=== PATIENT | male | born 1970 | race Caucasian/White ===

== ENCOUNTER 2021-11-01 17:02 | Emergency (ER) | payer OTHER ==
[~2021-11-01] VITALS: Ht 190.5 cm; Wt 91.6 kg
== END 2021-11-01 18:36 | disposition home or self-care (01) ==
LOC: ED 17:02
DX: S09.90XA Unspecified injury of head, initial encounter (principal); F10.129 Alcohol abuse with intoxication, unspecified; Y90.7 Blood alcohol level of 200-239 mg/100 ml; I10 Essential (primary) hypertension; W01.198A Fall on same level from slipping, tripping and stumbling with subsequent striking against other object, initial encounter
CPT/HCPCS: 36415; 70450; 72125; 80048; 85025; 99284-25; G0480; J7030

== ENCOUNTER 2021-12-05 06:27 | Emergency (ER) | payer OTHER ==
[~2021-12-05] VITALS: Ht 188 cm; Wt 99.8 kg
[~2021-12-05 06:27] MED LIST: ZESTRIL40 MG PO
--- OUTSIDE RECORDS SUMMARY | 2021-12-05 06:34 | XMS ---
PreManage Notification: PERLITA RADER [employer] [place] [employer] Events No recent Security Events currently on file CRITERIA MET - [facility] - 3 Facilities in 90 Days - [facility] - 2 Visits in 30 Days - 6 ED Visits in 6 Months CARE PROVIDERS There are no care providers on record at this time. Nikita has no Care Guidelines for this patient. E.DMerlin VISIT COUNT (12 MO.) 26 [facility] 2 [facility] 1 [facility] 1 [facility] 13 [facility] [address] [facility] [address] [facility] TOTAL 53 NOTE: Visits indicate total known visits. ED/UCC VISIT TRACKING (12 MO.) 12/05/2021 06:27 RONALD Escamilla TYPE: Emergency COMPLAINT: - VOMITING 11/24/2021 07[facility] DIAGNOSES: - Emesis - Diarrhea (Adult) - Nausea with vomiting, unspecified - Alcohol abuse, uncomplicated 11/23/2021 21:56 [facility] DIAGNOSES: - Alcohol use, unspecified with intoxication, unspecified - Alcohol Intoxication - Chest Pain - Gastritis, unspecified, without bleeding 11/19/2021 20:50 RONALD Escamilla TYPE: Emergency COMPLAINT: - CHEST PAIN DIAGNOSES: - Essential (primary) hypertension - Alcohol abuse, uncomplicated - Other chest pain - Allergy status to penicillin 11/18/2021 00:17 [facility] Anuel BRADY TYPE: Emergency DIAGNOSES: - Alcohol use, unspecified with intoxication, uncomplicated - Gastro-esophageal reflux disease without esophagitis - Chest pain, unspecified 11/08/2021 18:32 [facility] Anuel BRADY TYPE: Emergency DIAGNOSES: - Alcohol Intoxication - Alcohol abuse, uncomplicated 11/08/2021 10:11 [facility] Anuel BRADY TYPE: Emergency DIAGNOSES: - Elevated blood-pressure reading, without diagnosis of hypertension - Detox - Dehydration - Detox Evaluation - Alcohol abuse, uncomplicated 11/05/2021 10:51 [facility] Anuel BRADY TYPE: Emergency DIAGNOSES: - Alcohol dependence, uncomplicated - Alcohol Intoxication 11/04/2021 17:45 [facility] TYPE: Emergency COMPLAINT: - HIGH BLOOD PRESSURE 11/01/2021 17:03 [facility] [place] [facility] TYPE: Emergency COMPLAINT: - FALL/INTOXICATION DIAGNOSES: - Essential (primary) hypertension - Alcohol abuse with intoxication, unspecified - Unspecified injury of head, initial encounter - Blood alcohol level of 200-239 mg/100 ml - Fall on same level from slipping, tripping and stumbling with subsequent striking against other object, initial encounter 10/31/2021 12:35 [facility] [place] TYPE: Emergency DIAGNOSES: - Laceration without foreign body of left middle finger without damage to nail, initial encounter - leg injury - Suicidal Thoughts - Alcohol use, unspecified with intoxication, uncomplicated 10[facility] COMPLAINT: - Intoxication DIAGNOSES: - Alcohol use, unspecified with intoxication, uncomplicated - Alcohol Intoxication - Intoxication 10/29/2021 20:22 [facility] TYPE: Emergency COMPLAINT: - Dehydration DIAGNOSES: - Dehydration - Alcohol use, unspecified with intoxication, uncomplicated - Alcohol Intoxication 10/26/2021 17:15 [facility] TYPE: Emergency DIAGNOSES: - Alcohol use, unspecified with intoxication, uncomplicated - Problem related to unspecified psychosocial circumstances - Alcohol Intoxication - EMS JOSE L 09/25/2021 22:54 Elmo WEAVER [place] TYPE: Emergency COMPLAINT: - SIRS, TME, ETOH INTOX, CHEST PAIN, LACT ACID, TRANSAMINITIS DIAGNOSES: - SIRS, TME, ETOH INTOX, CHEST PAIN, LACT ACID, TRANSAMINITIS 09/25/2021 03:05 Elmo ADHIKARI TYPE: Emergency COMPLAINT: - HYPERTENSION DIAGNOSES: 1. Procedure and treatment not carried out due to patient leaving prior to being seen by health care provider 1. Procedure and treatment not carried out due to patient leaving prior to being seen by health care provider 09/19/2021 03:26 Savita ADHIKARI TYPE: Emergency DIAGNOSES: - Chest Pain - Hypertensive urgency - Chest pain, unspecified - Other stimulant abuse, uncomplicated - Headache, unspecified 09/14/2021 16:44 Savita ADHIKARI TYPE: Emergency DIAGNOSES: - Alcohol use, unspecified with intoxication, uncomplicated - Alcohol dependence, uncomplicated - Alcohol Intoxication 09/13/2021 12:41 Savita ADHIKARI TYPE: Emergency DIAGNOSES: - Alcohol dependence with withdrawal, uncomplicated - Unspecified injury of head, initial encounter - Alcohol use, unspecified with intoxication, uncomplicated - Abdominal Pain - Alcohol Intoxication 09/11/2021 01:19 Savita ADHIKARI TYPE: Emergency DIAGNOSES: - Alcohol Problem Plus 33 More Visits INPATIENT VISIT TRACKING (12 MO.) 09/25/2021 22:54 Elmo ADHIKARI TYPE: Medical Surgical COMPLAINT: - SIRS, TME, ETOH INTOX, CHEST PAIN, LACT ACID, TRANSAMINITIS DIAGNOSES: 1. Toxic effect of ethanol, accidental (unintentional), initial encounter 1. Unspecified abdominal pain 2. Other toxic encephalopathy 3. Systemic inflammatory response syndrome (SIRS) of non-infectious origin with acute organ dysfunction 4. Unspecified protein-calorie malnutrition 5. Hypo-osmolality and hyponatremia 6. Alcohol abuse with withdrawal, unspecified 7. Alcohol abuse with intoxication, unspecified 8. Schizophrenia, unspecified 9. Essential (primary) hypertension 10. Gastro-esophageal reflux disease without esophagitis 11. Nicotine dependence, cigarettes, uncomplicated 12. Cannabis use, unspecified, uncomplicated 13. Alcoholic hepatitis without ascites 14. Alcoholic liver disease, unspecified 15. Blood alcohol level of 240 mg/100 ml or more 16. Contact with and (suspected) exposure to COVID-19 17. Other specified places as the place of occurrence of the external cause 18. Body mass index [BMI] 26.0-26.9, adult 18. Body mass index [BMI] 26.0-26.9, adult 18. Body mass index [BMI] 26.0-26.9, adult 18. Body mass index [BMI] 26.0-26.9, adult 18. Body mass index [BMI] 26.0-26.9, adult 18. Body mass index [BMI] 26.0-26.9, adult 18. Body mass index [BMI] 26.0-26.9, adult 19. Patient's noncompliance with other medical treatment and regimen - SIRS, TME, ETOH INTOX, CHEST PAIN, LACT ACID, TRANSAMINITIS 07/28/2021 18:12 [facility] TYPE: Medical Surgical COMPLAINT: - IMMINENT DELERIUM TREMENS DIAGNOSES: 1. Alcohol dependence with withdrawal, unspecified 1. Alcohol dependence with withdrawal delirium 2. Unspecified protein-calorie malnutrition 3. Melena 4. Other stimulant abuse, uncomplicated 5. Alcoholic gastritis without bleeding 6. Blood alcohol level of 240 mg/100 ml or more 7. Esophagitis, unspecified without bleeding 8. Essential (primary) hypertension 9. Hyperlipidemia, unspecified 10. Patient's noncompliance with other medical treatment and regimen 11. Schizophrenia, unspecified 12. Gastro-esophageal reflux disease without esophagitis 13. SUSPECTED EXPOSURE TO COVID 19 - IMMINENT DELERIUM TREMENS 07/11/2021 19:53 [facility] TYPE: Medical Surgical COMPLAINT: - POSS SIRS, TME, POSS ETOH INTOX, IMPEND DTS DIAGNOSES: 1. Toxic effect of ethanol, accidental (unintentional), initial encounter 1. Toxic effect of ethanol, accidental (unintentional), initial encounter 2. Systemic inflammatory response syndrome (SIRS) of non-infectious origin with acute organ dysfunction 3. Alcoholic gastritis with bleeding 4. Acidosis 5. Other place in single-family (private) house as the place of occurrence of the external cause 6. SUSPECTED EXPOSURE TO COVID 19 7. Hypertensive urgency 8. Essential (primary) hypertension 9. Other stimulant abuse, uncomplicated 10. Schizophrenia, unspecified 11. Gastro-esophageal reflux disease without esophagitis 12. Patient's noncompliance with other medical treatment and regimen 13. Nicotine dependence, cigarettes, uncomplicated 14. Alcohol abuse with intoxication, unspecified 15. Blood alcohol level of 240 mg/100 ml or more - POSS SIRS, TME, POSS ETOH INTOX, IMPEND DTS 07/04/2021 03:37 [facility] TYPE: Medical Surgical COMPLAINT: - RECURRENT B LE CELLULITIS DIAGNOSES: 1. Pain in right leg 1. Sepsis, unspecified organism 2. Localized swelling, mass and lump, left lower limb 2. Cellulitis of right lower limb 3. Cellulitis of left lower limb 4. Alcohol abuse, uncomplicated 5. Schizophrenia, unspecified 6. Gastro-esophageal reflux disease without esophagitis 7. Essential (primary) hypertension 8. Other stimulant abuse, uncomplicated 9. Other disorders of electrolyte and fluid balance, not elsewhere classified 10. SUSPECTED EXPOSURE TO COVID 19 11. Nicotine dependence, cigarettes, uncomplicated 12. Cannabis use, unspecified, uncomplicated 13. Patient's noncompliance with other medical treatment and regimen - RECURRENT B LE CELLULITIS 06/20/2021 19:35 [facility] TYPE: Medical Surgical COMPLAINT: - ETOH W/D IMMINENT DT'S DIAGNOSES: 1. Alcohol abuse with withdrawal, unspecified 1. Alcohol abuse with withdrawal, unspecified 2. Systemic inflammatory response syndrome (SIRS) of non-infectious origin without acute organ dysfunction 3. Unspecified protein-calorie malnutrition 4. Nicotine dependence, cigarettes, uncomplicated 5. Essential (primary) hypertension 6. Other stimulant abuse, uncomplicated 7. Schizophrenia, unspecified 8. Alcohol abuse with withdrawal delirium 9. Alcoholic hepatitis without ascites 10. Liver disease, unspecified 11. Gastro-esophageal reflux disease without esophagitis 12. SUSPECTED EXPOSURE TO COVID 19 13. Body mass index [BMI] 36.0-36.9, adult 13. Body mass index [BMI] 36.0-36.9, adult 13. Body mass index [BMI] 36.0-36.9, adult 13. Body mass index [BMI] 36.0-36.9, adult 13. Body mass index [BMI] 36.0-36.9, adult 13. Body mass index [BMI] 36.0-36.9, adult 13. Body mass index [BMI] 36.0-36.9, adult 13. Body mass index [BMI] 36.0-36.9, adult 13. Body mass index [BMI] 36.0-36.9, adult 13. Body mass index [BMI] 36.0-36.9, adult 13. Body mass index [BMI] 36.0-36.9, adult 13. Body mass index [BMI] 36.0-36.9, adult 13. Body mass index [BMI] 36.0-36.9, adult 13. Body mass index [BMI] 36.0-36.9, adult 14. Patient's other noncompliance with medication regimen 15. Fall on same level, unspecified, initial encounter 16. Other specified places as the place of occurrence of the external cause - ETOH W/D IMMINENT DT'S 06/09/2021 13:28 [facility] TYPE: Medical Surgical COMPLAINT: - ETOH INTOXICATION, RIGHT HAND WRIST FRACTURE. HIGH RISK FOR WITHDRAWAL DIAGNOSES: 1. Toxic effect of ethanol, accidental (unintentional), initial encounter 1. OTHER TOXIC ENCEPHALOPATHY 2. OTHER TOXIC ENCEPHALOPATHY 3. Unspecified protein-calorie malnutrition 4. Unspecified place in unspecified non-institutional (private) residence as the place of occurrence of the external cause 5. Blood alcohol level of 240 mg/100 ml or more 6. SUSPECTED EXPOSURE TO COVID 19 7. Nicotine dependence, cigarettes, uncomplicated 8. Schizophrenia, unspecified 9. Essential (primary) hypertension 10. Gastro-esophageal reflux disease without esophagitis 11. Fracture of unspecified carpal bone, right wrist, initial encounter for closed fracture 12. Fall on same level from slipping, tripping and stumbling without subsequent striking against object, initial encounter 13. UNSHELTERED HOMELESSNESS - ETOH INTOXICATION, RIGHT HAND WRIST FRACTURE. HIGH RISK FOR WITHDRAWAL 06/05/2021 16:43 [facility] TYPE: Medical Surgical COMPLAINT: - SIRS, TME, ETOH INTOX, IMPENDING DTS DIAGNOSES: 1. Toxic effect of ethanol, accidental (unintentional), initial encounter 1. Toxic effect of ethanol, accidental (unintentional), initial encounter 2. Systemic inflammatory response syndrome (SIRS) of non-infectious origin with acute organ dysfunction 3. OTHER TOXIC ENCEPHALOPATHY 4. Acidosis 5. Unspecified protein-calorie malnutrition 6. Alcohol abuse with withdrawal, unspecified 7. Gastritis, unspecified, without bleeding 8. Gastro-esophageal reflux disease without esophagitis 9. Schizophrenia, unspecified 10. Essential (primary) hypertension 11. Cannabis use, unspecified, uncomplicated 12. Nicotine dependence, cigarettes, uncomplicated 13. Patient's noncompliance with other medical treatment and regimen 14. Blood alcohol level of 240 mg/100 ml or more 15. Hypokalemia 16. SUSPECTED EXPOSURE TO COVID 19 17. Displaced fracture of neck of fourth metacarpal bone, right hand, subsequent encounter for fracture with routine healing 18. Displaced fracture of neck of fifth metacarpal bone, right hand, subsequent encounter for fracture with routine healing 19. Other place in other non-institutional residence as the place of occurrence of the external cause - SIRS, TME, ETOH INTOX, IMPENDING DTS 03/30/2021 17:24 Savita ADHIKARI TYPE: Neurology COMPLAINT: - K85.20 DIAGNOSES: - Alcohol dependence, uncomplicated - Alcohol induced acute pancreatitis without necrosis or infection 12/15/2020 01:01 Elmo ADHIKARI TYPE: Medical Surgical COMPLAINT: - DELERIUM TREMENS DIAGNOSES: 1. Toxic effect of ethanol, accidental (unintentional), initial encounter 1. Toxic effect of ethanol, accidental (unintentional), initial encounter 2. Alcohol dependence with withdrawal delirium 3. Systemic inflammatory response syndrome (SIRS) of non-infectious origin without acute organ dysfunction 4. Unspecified protein-calorie malnutrition 5. Other place in single-family (private) house as the place of occurrence of the external cause 6. Alcoholic hepatitis without ascites 7. Schizophrenia, unspecified 8. Nicotine dependence, cigarettes, uncomplicated 9. Unspecified abdominal pain 10. Patient's noncompliance with other medical treatment and regimen 11. 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 Body mass index [BMI] 26.0-26.9, adult 13. Body mass index [BMI] 26.0-26.9, adult 13. Body mass index [BMI] 26.0-26.9, adult 13. Body mass index [BMI] 26.0-26.9, adult 13. Body mass index [BMI] 26.0-26.9, adult 13. Body mass index [BMI] 26.0-26.9, adult 13. Body mass index [BMI] 26.0-26.9, adult 13. Body mass index [BMI] 26.0-26.9, adult 14. SUSPECTED EXPOSURE TO COVID 19 - STANLEY SOW [email or web address]
[2021-12-05] MEDS ORDERED: ONDANSETRON ODT8 MG PO (07:15)
== END 2021-12-05 08:10 | disposition home or self-care (01) ==
LOC: ED 06:27
DX: R11.2 Nausea with vomiting, unspecified (principal); R04.0 Epistaxis; I10 Essential (primary) hypertension; Z88.0 Allergy status to penicillin
CPT/HCPCS: 99284; A9270

== ENCOUNTER 2022-04-07 14:55 | Emergency (ER) | payer OTHER ==
[~2022-04-07] VITALS: Ht 188 cm; Wt 99.8 kg
[~2022-04-07 14:55] MED LIST changes: +ONDANSETRON ODT8 MG PO
--- OUTSIDE RECORDS SUMMARY | 2022-04-07 15:02 | XMS ---
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 - Has Care Guidelines - [facility] - 2 Visits in 30 Days - 6 ED Visits in 6 Months - [facility] - 3 Facilities in 90 Days CARE PROVIDERS There are no care providers on record at this time. Guidelines Source: [facility] Guidelines Date: 02/19/2022 Care Recommendation: -Please assist patient to contact [facility] to change their address, as he has been in [place] and appears to be utilizing [place] Medicaid. - [email or web address] or call [phone] and report changes over the phone. E.D. VISIT COUNT (12 MO.) 2 [facility] 21 [facility] 2 [facility] 1 [facility] 1 [facility] [address] 5 [facility] TOTAL 56 NOTE: Visits indicate total known visits. ED/C VISIT TRACKING (12 MO.) 04/07/2022 14:56 [facility] TYPE: Emergency COMPLAINT: - HEADACHES 04/04/2022 21:33 [facility] TYPE: Emergency DIAGNOSES: - Anxiety disorder, unspecified - Medical Problem (Minor) - Delusional disorders - Mental Health Evaluation - personal "pourban are following me" 03/30/2022 13:04 [facility] TYPE: Emergency DIAGNOSES: - Withdrawal (Alcohol) - Alcoholic gastritis without bleeding - Alcohol dependence, uncomplicated - Vomiting (Severe) - nausia, V, withdrawl - Elevated white blood cell count, unspecified - Emesis 03/29/2022 13:44 [facility] [place] TYPE: Emergency DIAGNOSES: - Alcohol use, unspecified with intoxication, uncomplicated - Medical Clearance - Elevated white blood cell count, unspecified 03/26/2022 00:05 [facility] [place] TYPE: Emergency DIAGNOSES: - V/Alcohol withdrawal - Shaking - Alcohol dependence with intoxication, unspecified - Nausea with vomiting, unspecified 02/18/2022 08:46 Elmo ADHIKARI TYPE: Emergency COMPLAINT: - IMPENDING DTS /ETOH W/D DIAGNOSES: - IMPENDING DTS /ETOH W/D 01/28/2022 21:16 Savita ADHIKARI TYPE: Emergency DIAGNOSES: - Alcohol use, unspecified with intoxication, uncomplicated - Psychiatric Evaluation - Suicidal ideations 01/21/2022 14:57 Elmo ADHIKARI TYPE: Emergency COMPLAINT: - ETOH DIAGNOSES: 1. Procedure and treatment not carried out due to patient leaving prior to being seen by health care provider 1. Procedure and treatment not carried out due to patient leaving prior to being seen by health care provider [facility] DIAGNOSES: - Acute upper respiratory infection, unspecified - Cough/Vomiting - Cough - Elevated blood-pressure reading, without diagnosis of hypertension 12/31/2021 23:01 [facility] [place] TYPE: Emergency DIAGNOSES: - Nausea with vomiting, unspecified - Generalized abdominal pain - NAUSEA 12/05/2021 06:27 [facility] TYPE: Emergency COMPLAINT: - VOMITING DIAGNOSES: - Nausea with vomiting, unspecified - Allergy status to penicillin - Epistaxis - Essential (primary) hypertension 12/03/2021 06:37 [facility] TYPE: Emergency DIAGNOSES: - Alcohol use, unspecified with intoxication, uncomplicated - HIGH BLOOD PRESSURE ASSUALT - Contusion of scalp, initial encounter 11/24/2021 07:26 [facility] [place] TYPE: Emergency DIAGNOSES: - Alcohol abuse, uncomplicated - Diarrhea (Adult) - Nausea with vomiting, unspecified - Emesis 11/23/2021 21:56 [facility] TYPE: Emergency DIAGNOSES: - Gastritis, unspecified, without bleeding - Alcohol Intoxication - Chest Pain - Alcohol use, unspecified with intoxication, unspecified 11/19/2021 20:50 RONALD Esc[facility] TYPE: Emergency COMPLAINT: - CHEST PAIN DIAGNOSES: - Allergy status to penicillin - Alcohol abuse, uncomplicated - Other chest pain - Essential (primary) hypertension 11/18/2021 00:17 [facility] [place] TYPE: Emergency DIAGNOSES: - Gastro-esophageal reflux disease without esophagitis - Chest pain, unspecified - Alcohol use, unspecified with intoxication, uncomplicated 11/08/2021 18:32 [facility] TYPE: Emergency DIAGNOSES: - Alcohol abuse, uncomplicated - Alcohol Intoxication 11/08/2021 10:11 [facility] [place] [place] TYPE: Emergency DIAGNOSES: - Detox Evaluation - Detox - Alcohol abuse, uncomplicated - Dehydration - Elevated blood-pressure reading, without diagnosis of hypertension 11/05/2021 10:[address] [facility] TYPE: Emergency DIAGNOSES: - Alcohol Intoxication - Alcohol dependence, uncomplicated 11/04/2021 17:45 RONALD Escamilla TYPE: Emergency COMPLAINT: - HIGH BLOOD PRESSURE Plus 36 More Visits INPATIENT VISIT TRACKING (12 MO.) 02/18/2022 08:46 Elmo ADHIKARI TYPE: Medical Surgical COMPLAINT: - IMPENDING DTS /ETOH W/D DIAGNOSES: 1. Toxic effect of ethanol, accidental (unintentional), initial encounter 1. Tremor, unspecified 2. Other toxic encephalopathy 3. Alcohol abuse with withdrawal, unspecified 4. Unspecified protein-calorie malnutrition 5. Essential (primary) hypertension 6. Alcoholic hepatitis without ascites 7. Contact with and (suspected) exposure to COVID-19 8. Nicotine dependence, cigarettes, uncomplicated 9. Hyperlipidemia, unspecified 10. Gastro-esophageal reflux disease without esophagitis 11. Patient's noncompliance with other medical treatment and regimen 12. Schizophrenia, unspecified 13. Unspecified place in unspecified non-institutional (private) residence as the place of occurrence of the external cause 14. Blood alcohol level of 240 mg/100 ml or more - IMPENDING DTS /ETOH W/D 09/25/2021 22:54 [facility] TYPE: Medical Surgical COMPLAINT: - SIRS, TME, ETOH INTOX, CHEST PAIN, LACT ACID, TRANSAMINITIS DIAGNOSES: 1. Unspecified abdominal pain 1. Toxic effect of ethanol, accidental (unintentional), initial encounter 2. Other toxic encephalopathy 3. Systemic inflammatory [...] CHEST PAIN, LACT ACID, TRANSAMINITIS 07/28/2021 18:12 Elmo ADHIKARI TYPE: Medical Surgical COMPLAINT: - IMMINENT DELERIUM TREM DIAGNOSES: 1. Alcohol dependence with withdrawal, unspecified [...] esophagitis 13. SUSPECTED EXPOSURE TO COVID 19 13. Contact with and (suspected) exposure to COVID-19 - IMMINENT DELERIUM TREMENS 07/11/2021 19:53 Elmo ADHIKARI TYPE: Medical Surgical COMPLAINT: - POSS SIRS, [...] cause 6. SUSPECTED EXPOSURE TO COVID 19 6. Contact with and (suspected) exposure to COVID-19 7. Hypertensive urgency 8. Essential (primary) hypertension 9. Other stimulant abuse, uncomplicated 10. Schizophrenia, unspecified 11. Gastro-esophageal reflux disease without esophagitis 12. Patient's noncompliance with other medical treatment and regimen 13. Nicotine dependence, cigarettes, uncomplicated 14. Alcohol abuse with intoxication, unspecified 15. Blood alcohol level of 240 mg/100 ml or more - POSS SIRS, TME, POSS ETOH INTOX, IMPEND DTS 07/04/2021 03:37 [facility] TYPE: Medical Surgical COMPLAINT: - RECURRENT B LE CELLULITIS DIAGNOSES: 1. Pain in right leg 1. Sepsis, unspecified organism 2. Cellulitis of right lower limb 2. Localized swelling, mass and lump, left lower limb 3. Cellulitis of left lower limb 4. Alcohol abuse, uncomplicated 5. Schizophrenia, unspecified 6. Gastro-esophageal reflux disease without esophagitis 7. Essential (primary) hypertension 8. Other stimulant abuse, uncomplicated 9. Other disorders of electrolyte and fluid balance, not elsewhere classified 10. SUSPECTED EXPOSURE TO COVID 19 10. Contact with and (suspected) exposure to COVID-19 11. Nicotine dependence, cigarettes, uncomplicated 12. Cannabis use, unspecified, uncomplicated 13. Patient's noncompliance with other medical treatment and regimen - RECURRENT B LE CELLULITIS 06/20/2021 19:35 [place] [facility] TYPE: Medical Surgical COMPLAINT: - ETOH W/D [...] 11. Gastro-esophageal reflux disease without esophagitis 12. Contact with and (suspected) exposure to COVID-19 12. SUSPECTED EXPOSURE TO COVID 19 13. [...] - ETOH W/D IMMINENT DT'S 06/09/2021 13:28 [facility] TYPE: Medical Surgical COMPLAINT: - ETOH INTOXICATION, RIGHT HAND WRIST FRACTURE. HIGH RISK FOR WITHDRAWAL DIAGNOSES: 1. Other toxic encephalopathy 1. OTHER TOXIC ENCEPHALOPATHY 1. Toxic effect of ethanol, accidental (unintentional), initial encounter 2. Other toxic encephalopathy 2. OTHER TOXIC ENCEPHALOPATHY 3. Unspecified protein-calorie malnutrition 4. Unspecified place in unspecified non-institutional (private) residence as the place of occurrence of the external cause 5. Blood alcohol level of 240 mg/100 ml or more 6. SUSPECTED EXPOSURE TO COVID 19 6. Contact with and (suspected) exposure to COVID-19 7. Nicotine dependence, cigarettes, uncomplicated 8. Schizophrenia, unspecified 9. Essential (primary) hypertension 10. Gastro-esophageal reflux disease without esophagitis 11. Fracture of unspecified carpal bone, right wrist, initial encounter for closed fracture 12. Fall on same level from slipping, tripping and stumbling without subsequent striking against object, initial encounter 13. UNSHELTERED HOMELESSNESS 13. Unsheltered homelessness - ETOH INTOXICATION, RIGHT HAND WRIST FRACTURE. HIGH RISK FOR WITHDRAWAL 06/05/2021 16:43 [facility] TYPE: Medical Surgical COMPLAINT: - SIRS, TME, ETOH INTOX, IMPENDING DTS DIAGNOSES: 1. Toxic effect of ethanol, accidental (unintentional), initial encounter 1. Toxic effect of ethanol, accidental (unintentional), initial encounter 2. Systemic inflammatory response syndrome (SIRS) of non-infectious origin with acute organ dysfunction 3. OTHER TOXIC ENCEPHALOPATHY 3. Other toxic encephalopathy 4. Acidosis 5. Unspecified protein-calorie malnutrition 6. Alcohol abuse with withdrawal, unspecified 7. Gastritis, unspecified, without bleeding 8. Gastro-esophageal reflux disease without esophagitis 9. Schizophrenia, unspecified 10. Essential (primary) hypertension 11. Cannabis use, unspecified, uncomplicated 12. Nicotine dependence, cigarettes, uncomplicated 13. Patient's noncompliance with other medical treatment and regimen 14. Blood alcohol level of 240 mg/100 ml or more 15. Hypokalemia 16. Contact with and (suspected) exposure to COVID-19 16. SUSPECTED EXPOSURE TO COVID 19 17. [...] - SIRS, TME, ETOH INTOX, IMPENDING DTS [email or web address]
== END 2022-04-07 19:46 | disposition home or self-care (01) ==
LOC: ED 14:55
DX: R51.9 Headache, unspecified (principal); I10 Essential (primary) hypertension; Z88.0 Allergy status to penicillin; Z91.018 Allergy to other foods
CPT/HCPCS: 70450; 99284-25; A9270